=== PATIENT | male | born 1980 | race Caucasian/White ===

== ENCOUNTER 2016-12-03 05:47 | Day surgery (SDC) | payer BC ==
[2016-12-02 14:21] LABS: HEMATOCRIT 44.9 % (42.0-54.0); HEMOGLOBIN 14.8 g/dL (13.5-17.5); MCH 27.3 pg (26.0-34.0); MCV 82.8 fL (80.0-100.0); MEAN PLATELET VOLUME 10.7 fL (7.4-10.4); RBC 5.42 10x6/uL (4.20-6.10); WBC 12.3 10x3/uL (4.8-10.8)
[2016-12-02 14:58] LABS: CALC OSMOLALITY 285 mosm/kg (275-300); CALCIUM 9.6 mg/dL (8.5-10.1); CARBON DIOXIDE 26.7 mmol/L (21.0-32.0); CHLORIDE - SERUM 105 mmol/L (98-107); GLUCOSE 90 mg/dL (74-106); POTASSIUM - SERUM 4.5 mmol/L (3.5-5.1); SODIUM 143 mmol/L (136-145); UREA NITROGEN 14 mg/dL (7-18); eGFR NON AFRICAN AMERICAN 89 mL/min (90-120)
[~2016-12-03] VITALS: Ht 172.7 cm; Wt 144.7 kg
[~2016-12-03 05:47] MED LIST: BETA BLOCKER PO; LIPITOR20 MG PO; PRINIVIL20 MG PO
[2016-12-03 07:47] VITALS: BP 119/72; Ht 172.7 cm; Wt 144.7 kg
[2016-12-03] MEDS ORDERED: NORCO 7.5/325 T1 TA1 PO (14:41)
[2016-12-03] MEDS ORDERED: CYCLOBENZAPRINE10 MG PO (14:41)
--- NOTE | 2016-12-03 18:50 | NUR ---
6699--PT COMPLAINS OF PAIN, RATES PAIN 7/10. NORCO 5/325MG X2 TABS GIVEN PO, WILL CONTINUE TO MONITOR. VIKA LO 1715--PT STATES PAIN IS BETTER, RATES PAIN 4/10. CRANBERRY JUICE GIVEN, INSTRUCTED PT TO CALL OUT WHEN NEEDS TO VOID. VIKA LO
--- NOTE | 2016-12-03 20:05 | NUR ---
1935 PT DRESSED AND AMBULATORY, DC INSTS. REVIEWED VOICED UNDERSTANDING, RX'S GIVEN, RELEASED AMBULATORY PER PT. INSISTANCE.
--- NOTE | 2016-12-04 08:29 | OP ---
PATIENT NAME: SURAJ BRADSHAW MEDICAL RECORD: [id number] :78 LOCATION:D.FORMERLY [facility] ADMISSION DATE: SURGEON: WILL HICKS MD DATE OF OPERATION: 12/03/2016 SURGEON: Will Hicks MD PREOPERATIVE DIAGNOSIS: Incarcerated ventral hernia. POSTOPERATIVE DIAGNOSIS: Incarcerated ventral hernia. PROCEDURE PERFORMED: 1. Laparoscopic incarcerated ventral hernia repair with Ventralight ST mesh. 2. Laparoscopic partial omentectomy. ANESTHESIA: General. COMPLICATIONS: None. SPECIMENS: Partial omentum. ESTIMATED BLOOD LOSS: 20 cc. Case was clean. OPERATIVE COURSE: After consent was obtained, the patient was taken to the operating room and placed in the supine position on the operating table. Next, general anesthesia was given via endotracheal intubation after a timeout was performed that confirmed the correct patient and procedure. The abdomen was prepped and draped in typical sterile fashion. Band-Aid dressings were placed across the abdomen. Local anesthetic was injected in the left upper quadrant at Velazquez's point. Using a 5-mm bladeless optical trocar, the abdomen was entered under direct laparoscopic vision. After placing the first trocar all additional trocars were placed, a 12-mm trocar in the left lateral quadrant, 5-mm trocar in the left lower quadrant, 5-mm trocar were also placed in the right lateral and right lower quadrants. Adequate pneumoperitoneum was achieved. The abdominal cavity was inspected. No evidence of bowel injury. No evidence of bleeding. The patient had an incarcerated midline anterior abdominal wall hernia containing approximately half of the greater omentum. The omentum was not able to be reduced under tension. Greater omentum was meticulously dissected out using Harmonic scalpel. Once the contents of the hernia were reduced, the hernia sac was excised using the Harmonic scalpel. The preperitoneal fat was dissected down using electrocautery. Using a #1 PDS, the hernia defect was closed primarily using a Nav-Tiffani suture passer. Four interrupted sutures were placed across the defect. The defect was approximately 7 cm in width x 5 cm length. Once the defect was closed, the [address] circular mesh was placed in the abdomen. The Ventralight ST mesh was placed through the 12-mm trocar. The Echo positioning system was deployed. It was grasped with a Nav-Tiffani suture passer at the midpoint of the closed hernia defect. ____ firmly placed against the anterior abdominal wall the positioning system and deployed ____. The mesh was then secured to the anterior abdominal wall using Optifix tacking device. Echo positioning system was removed through the 11-mm trocar. The mesh was then sutured in a double crown fashion of Optifix tacks. Next, an EndoCatch bag was placed in the abdomen. The portion of the greater omentum was dissected out of the hernia sac and was OPERATIVE REPORT [id number] SURAJ BRADSHAW placed in the EndoCatch bag, removed through the 12-mm trocar and sent for permanent pathology. At this time, all remaining instruments were removed. The abdomen was desufflated. Trocars were removed. Skin was closed with 4-0 Monocryl, Mastisol and Steri-Strips. At the end of the case, all needle counts were correct. No complications occurred. A Kerlix fluff was placed firmly into the area of the belly button and then secured with an abdominal binder. The patient was transferred to the PACU in stable condition. TRANSINT:[id number] Voice Confirmation ID: [id number] DOCUMENT ID: [id number] WILL HICKS MD at 0829 CC: [id number] DICTATION DATE: 12/03/16 1452 PAPER PATTERN INSPECTOR: 12/04/16 0449 [facility] 12/03/16 [id number] [place] [address]
== END 2016-12-03 19:35 | disposition home or self-care (01) ==
LOC: D.OPS 05:47 → D.PAN 08:30 → D.OPS 08:30
PROVIDERS: Anesthesiology
DX: K43.6 Other and unspecified ventral hernia with obstruction, without gangrene (principal)

== ENCOUNTER 2019-06-17 05:30 | Day surgery (SDC) | payer BC ==
[~2019-06-17] VITALS: Ht 175.3 cm; Wt 136.1 kg
--- NOTE | ~2019-06-17 | OP ---
PATIENT NAME: SURAJ BRADSHAW MEDICAL RECORD: [id number] :78 LOCATION:[facility] ADMISSION DATE: SURGEON: LISETH RINCON MD DATE OF OPERATION: 06/17/2019 PREOPERATIVE DIAGNOSES: Nasal obstruction, turbinate hypertrophy, chronic tonsillitis, uvula edema, sleep apnea. POSTOPERATIVE DIAGNOSES: Nasal obstruction, turbinate hypertrophy, chronic tonsillitis uvula edema, sleep apnea. PROCEDURE: 1. Tonsillectomy. 2. Uvulectomy. 3. Bilateral inferior turbinate reduction. 4. Removal of foreign body, right lower lip. SURGEON: Liseth Rincon MD ANESTHESIA: General orotracheal. BLOOD LOSS: Less than 50 cc. SPECIMENS: Right and left tonsil and the uvula and the foreign body from the lip. NASAL PACKING: None. COMPLICATIONS: None. DISPOSITION: Recovery stable. PROCEDURE NOTE: He was brought to the operating room and placed in supine position, sedated and intubated by anesthesia. The table was turned 90 degrees. Head drape was applied. He was positioned, prepped and draped in the usual fashion. Both sides of the nose were examined and had been decongested with Afrin preoperatively. The inferior turbinates were injected with a total of less than 0.5 cc of 1% lidocaine with 1:100,000 epinephrine and 2 Afrin pledgets were placed in each side of the nose. The lower lip over the foreign body was injected with less than 0.5 cc as well as the base of the uvula. Using a headlight, a India-Alvaro mouth gag was carefully inserted and elevated and on a towel on the patient's chest. The palate was examined and palpated. He had a huge swollen uvula. A red rubber catheter was placed in the right side of the nose into the pharynx to retract the soft palate and examine the nasopharynx, which was normal. The red rubber catheter was let down and removed. The right tonsil was grasped at the superior pole with a straight Allis clamp. Spatula tip cautery on a setting of 10 was used to dissect out the tonsil along its capsule, preserving the anterior and posterior tonsillar pillar. The left tonsil was removed in the same fashion. The pharynx was irrigated. Bleeding was stopped with suction cautery on a setting of 18 and then the uvula was grasped with Allis clamp and the mucosa anteriorly and posteriorly was divided, preserving all the nasopharyngeal mucosa, not shortening the palate. The uvula was removed. Bleeding again was controlled with cautery and the uvula defect was closed with interrupted 3-0 Vicryl and the superior tonsil fossa were close somewhat with horizontal mattress sutures using a 3-0 Vicryl as well. Once that OPERATIVE REPORT [id number] SURAJ BRADSHAW was all completed, the India-Alvaro mouth gag was later removed. The lip was grasped bilaterally and a 15 blade was used to stab directly down on to this BB and it was removed. Basically, we squeezed out through a tiny puncture barely big enough for it. That did not bleed much and that was left open. The nose was then examined. He did have some septal deviation, but did not appear to be interfering with his airway. Both inferior turbinates were medialized with a freer and inferior portion was taken down with a Gruenwald and suction cautery on a setting of 28 was used to stop the bleeding and cauterize the inferior aspects and then both outfractured with a [place] elevator. He was then awakened, extubated, and transported to recovery in good condition. No complications. TRANSINT:[id number] Voice Confirmation ID: [id number] DOCUMENT ID: [id number] LISETH RINCON MD CC: [id number] DICTATION DATE: 06/17/19 1050 INSTRUCTOR OF EDUCATION: 06/17/19 1152 REG [facility] [address] [place] [address]
--- NOTE | ~2019-06-17 | HP ---
PATIENT: SURAJ BRADSHAW MEDICAL RECORD: [id number] ACCOUNT: [id number] LOCATION:[facility] : 76 ADMISSION DATE: 06/17/19 PCP: SHEA OLMEDO MD HISTORY AND PHYSICAL EXAMINATION HISTORY: Mr. Bradshaw is a 39-year-old male, who is having problems with sleep apnea, uvula swelling, nasal obstruction, and turbinate hypertrophy. He is being admitted for tonsillectomy, uvulectomy, bilateral turbinate reduction, and removal of foreign body from the lip. PAST SURGICAL HISTORY: Includes diabetes and hypertension. CURRENT MEDICATIONS: Include amlodipine, carvedilol, and olmesartan. PHYSICAL EXAMINATION: GENERAL: Healthy appearing. FACE: Normal, symmetric, no lesions. EYES: Sclerae and conjunctivae are normal. EARS: Canals and TMs are normal. NOSE: He has large turbinates. ORAL CAVITY AND OROPHARYNX: A 4+ tonsils. Long, thick, and swollen uvula. In the right side of the lip, he has a BB that is palpable and was removed at the same time. NECK: No masses, no adenopathy. CHEST: Clear. CARDIOVASCULAR: Regular rate and rhythm, no murmur. EXTREMITIES: Normal. IMPRESSION: Chronic tonsillitis, sleep apnea, uvula edema, nasal obstruction, turbinate hypertrophy, and foreign body BB in the lip. PLAN: Tonsillectomy, uvulectomy, excision of foreign body in the lip, and bilateral inferior turbinate reduction. TRANSINT:[id number] Voice Confirmation ID: [id number] DOCUMENT ID: [id number] LISETH CEBALLOS MD CC: [id number] DICTATION DATE: 06/15/191423 TAR POT WORKER: 06/15/[address] [facility] [address] [id number]
[~2019-06-17 05:30] MED LIST changes: +BENICAR20 MG PO; +COREG6.25 MG PO; +CYCLOBENZAPRINE10 MG PO; +NORCO 7.5/325 T1 TA1 PO; +NORVASC5 MG PO
[2019-06-17 05:55] LABS: HEMATOCRIT 44.5 % (42.0-54.0); HEMOGLOBIN 14.5 g/dL (13.5-17.5); MCH 27.5 pg (26.0-34.0); MCHC 32.6 g/dL (31.0-37.0); MCV 84.4 fL (80.0-100.0); MEAN PLATELET VOLUME 10.1 fL (7.4-10.4); RBC 5.27 10x6/uL (4.20-6.10); RDW 14.1 % (11.5-14.5); WBC 9.6 10x3/uL (4.8-10.8)
[2019-06-17 06:04] LABS: CALC OSMOLALITY 291 mosm/kg (275-300); CALCIUM 8.6 mg/dL (8.5-10.1); CARBON DIOXIDE 26.9 mmol/L (21.0-32.0); CHLORIDE - SERUM 106 mmol/L (98-107); CREATININE - SERUM 0.9 mg/dL (0.6-1.3); GLUCOSE 132 mg/dL (74-106); POTASSIUM - SERUM 4.5 mmol/L (3.5-5.1); SODIUM 145 mmol/L (136-145); UREA NITROGEN 14 mg/dL (7-18); eGFR NON AFRICAN AMERICAN > 90 mL/min (90-120)
[2019-06-17 07:21] VITALS: BP 123/75; Ht 175.3 cm; Wt 136.1 kg
== END 2019-06-17 13:25 | disposition home or self-care (01) ==
LOC: D.OPS 05:30 → D.PAN 08:00 → D.OPS 08:45
PROVIDERS: Anesthesiology; ATTEND Otolaryngology
DX: J34.3 Hypertrophy of nasal turbinates (principal); J34.89 Other specified disorders of nose and nasal sinuses; J35.01 Chronic tonsillitis; G47.30 Sleep apnea, unspecified

== ENCOUNTER 2020-10-29 06:28 | Day surgery (SDC) | payer BC ==
[~2020-10-29] VITALS: Ht 175.3 cm; Wt 136.4 kg
--- NOTE | ~2020-10-29 | OP ---
PATIENT NAME: SURAJ BRADSHAW MEDICAL RECORD: [id number] :76 LOCATION:[facility] ADMISSION DATE: SURGEON: LISETH RINCON MD DATE OF OPERATION: 10/29/2020 PREOPERATIVE DIAGNOSIS: Right-sided throat pain, sensation is near the tip of his right hyoid bone by his perception, been present more than 6 months. PROCEDURE: Direct laryngoscopy and biopsy. SURGEON: Liseth Rincon MD ANESTHESIA: General orotracheal. BLOOD LOSS: Less than 5 cc. SPECIMENS: Multiple biopsies base of tongue, right lateral pharynx. COMPLICATIONS: None. DISPOSITION: Recovery, stable. DESCRIPTION OF PROCEDURE: He was brought to the operating room and placed in supine position, sedated and intubated by anesthesia. The table was turned 90 degrees. Head drape was applied. First, the lateral pharyngeal wall, tonsil fossa palate, base of tongue were palpated under anesthesia. First, India-Alvaro mouth gag was carefully inserted and elevated on a towel on his chest. The base of the tongue, lateral pharyngeal wall everything was carefully examined and palpated visually with a mirror and nothing really significant showed up there and that was removed. The Kleinsasser J. laryngoscope was used to examine the base of tongue, vallecula, epiglottis, AE folds, the cords, postcricoid area, and pyriform. Again, everything really looked relatively normal, but her symptoms were right-sided, focused on that side. There were a couple of irritated isolated taste buds that were removed with upbiting cup forcep. There were a couple of hard areas on the base of the tongue consistent with possibly a tiny cyst. Nothing looked like a carcinoma, but took about half a dozen biopsies of an irregularity of the base of the tongue back there and the same with the lateral pharyngeal wall. He had a little, I would say, irritated area near the glossal palatal arch. Biopsied that and some scar maybe, a white pale area near the inferior tonsillar fossa on that right side, took biopsies of that as well and just any slight irregularity that could be seen or firm area to palpation. Once that was all completed, there really was not much bleeding. No other area in the least bit suspicious. He was awakened, extubated, and transported to recovery in good condition. No complications. TRANSINT:[id number] Voice Confirmation ID: [id number] DOCUMENT ID: [id number] OPERATIVE REPORT [id number] SURAJ BRADSHAW ERIC MD CC: [id number] DICTATION DATE: 10/29/20 1124 NUCLEAR MEDICINE PHYSICIAN: 10/29/202099 [facility] 10/29/20 [id number] [place] [id number]
[2020-10-29 08:23] VITALS: BP 148/81; Ht 175.3 cm; Wt 136.4 kg
[2020-10-29 08:27] LABS: HEMATOCRIT 47.7 % (42.0-54.0); HEMOGLOBIN 15.3 g/dL (13.5-17.5); MCHC 32.1 g/dL (31.0-37.0); MCV 81.1 fL (80.0-100.0); RBC 5.88 10x6/uL (4.20-6.10); RDW 14.8 % (11.5-14.5); WBC 10.3 10x3/uL (4.8-10.8)
--- NOTE | 2020-10-29 11:15 | HP ---
PATIENT: SURAJ BRADSHAW MEDICAL RECORD: [id number] ACCOUNT: [id number] LOCATION:[facility] : 76 ADMISSION DATE: 10/29/20 PCP: SHEA OLMEDO MD HISTORY AND PHYSICAL EXAMINATION HISTORY OF PRESENT ILLNESS: Mr. Bradshaw is 40, he has a foreign body sensation right side of the throat points to about the level of the hyoid. This is a lower lateral pharynx on the right side. Says he feels like a pill or something when he swallows is stuck there. Exam is negative. He has been admitted for direct laryngoscopy, possible biopsy. PAST MEDICAL HISTORY: Includes diabetes, hypertension. PAST SURGICAL HISTORY: Includes tonsillectomy, turbinate reduction in 2019. SOCIAL HISTORY: Quit smoking about 5 years ago. CURRENT MEDICATIONS: Amlodipine, carvedilol, losartan. ALLERGIES: No known drug allergies. PHYSICAL EXAMINATION: GENERAL: Healthy. FACE: Normal, symmetric. EYES: Sclerae and conjunctivae are normal. EARS: Canals and TMs normal. NOSE: No mass, polyps, or drainage. ORAL CAVITY AND OROPHARYNX. Tongue protrudes in the midline. Pharynx normal. NECK: No masses, no adenopathy. CHEST: Clear. CARDIOVASCULAR: Regular rate and rhythm, no murmur. EXTREMITIES: Normal. IMPRESSION: Foreign body sensation, right lower pharynx. PLAN: Direct laryngoscopy and possible biopsies. TRANSINT:[id number] Voice Confirmation ID: [id number] DOCUMENT ID: [id number] LISETH CEBALLOS MD at 1115 CC: [id number] DICTATION DATE: 10/26/20 1053 AIRCRAFT ARMORER: 10/26/20 1117 REG [facility] [address] [place] [id number]
--- NOTE | 2020-10-29 13:22 | NUR ---
PIV DC'D WITH TIP INTACT. DISCHARGE INSTRUCTIONS REVIEWED. O2 SAT ON RA 95%. DISCHARGED HOME VIA WHEELCHAIR TO PRIVATE VEHICLE WITH FAMILY
== END 2020-10-29 13:22 | disposition home or self-care (01) ==
LOC: D.OPS 06:28
PROVIDERS: Anesthesiology; ATTEND Otolaryngology
DX: R07.0 Pain in throat (principal); I10 Essential (primary) hypertension; E11.9 Type 2 diabetes mellitus without complications